=== PATIENT | male | born 1985 | race Caucasian/White ===

== ENCOUNTER 2019-03-13 20:59 | Inpatient (IN) | payer BC ==
[2019-03-13] MEDS ORDERED: ACETAMINOPHEN 500 MG TAB ONE (21:23)
[2019-03-13] MEDS ORDERED: NA CHLORIDE 0.9% 3,000 ML ONE (21:23)
[2019-03-13 22:08] LABS: Absolute Lymphocytes (CBC) 0.7 K/uL (0.7-4.9); Basophils % 0.5 % (0-1.3); Hematocrit 40.5 % (39.6-49.0); MPV 9.3 fL (7.6-11.3); RBC Red Blood Cell Count 4.69 M/uL (4.33-5.43)
[2019-03-13] MEDS ORDERED: CEFTRIAXONE/SWI 1gm 2 GM/20 ML SYR ONE (22:09)
[2019-03-13] MEDS ORDERED: IBUPROFEN 400 MG TAB ONE (22:09)
[2019-03-13] MEDS ORDERED: NA CHLORIDE 0.9% 250 ML ONE (22:09)
[2019-03-13] MEDS ORDERED: OSELTAMIVIR 75 MG CAP ONE (22:09)
[2019-03-13] MEDS ORDERED: AZITHROMYCIN 500 MG INJ IVPB ONE (22:09)
[2019-03-13 22:12] LABS: Protime INR 1.13
[2019-03-13 22:24] LABS: ALT/SGPT 60 U/L (12-78); AST/SGOT 42 U/L (15-37); Albumin 3.5 g/dL (3.4-5.0); Alkaline Phosphatase 87 U/L (45-117); BUN Blood Urea Nitrogen 13 mg/dL (7-18); Bicarbonate 27 mmol/L (21-32); Bilirubin Direct < 0.1 mg/dL (0-0.2); Bilirubin Total 0.5 mg/dL (0.2-1.0); CKMB Creatine Kinase MB < 1.0 ng/mL (0.3-3.6); Creatine Phosphokinase 251 U/L (39-308); Glucose Level 196 mg/dL (74-106); Lipase 52 U/L (73-393); Potassium 3.5 mmol/L (3.5-5.1); Protein, Total 7.4 g/dL (6.4-8.2); Sodium Level 134 mmol/L (136-145); Troponin (Emerg Dept Use Only) < 0.02 ng/mL (0.0-0.045)
--- NOTE | 2019-03-13 23:01 | RAD REPORT ---
EXAM DESCRIPTION: RAD - Chest Single View - 03/13/2019 9:46 pm CLINICAL HISTORY: PRODUCTIVE COUGH Chest pain. COMPARISON: CHEST SINGLE VIEW dated 01/12/2009 FINDINGS: Portable technique limits examination quality. The lungs are grossly clear. The heart is normal in size. No displaced fractures. IMPRESSION: No acute intrathoracic process suspected.
[2019-03-13] MEDS ORDERED: NA CHLORIDE 0.9% 2,000 ML ONE (23:18)
--- NOTE | 2019-03-13 23:48 | ER ---
Nurse's Notes [facility] Name: Danish Velez IV Age: 34 yrs Sex: Male : 1985 Arrival Date: 03/13/2019 Time: 21:04 Bed 16 Private MD: Thaddeus Mao T Diagnosis: Dyspnea;Pneumonia due to other specified bacteria;Fever, unspecified;Sepsis, unspecified organism;Obesity, unspecified;Type 2 diabetes mellitus Presentation: 03/13 21:10 Presenting complaint: Patient states: COUGH STARTED LAST NIGHT. I WORKED ALL DAY rv YESTERDAY AND I WAS DOING FINE UNTIL LAST NIGHT. I COULD NOT BREATH. Transition of care: patient was not received from another setting of care. Onset of symptoms was March 12, 2019 at 19:00. Risk Assessment: Do you want to hurt yourself or someone else? Patient reports no desire to harm self or others. Initial Sepsis Screen: Does the patient meet any 2 criteria? No. Patient's initial sepsis screen is negative. Does the patient have a suspected source of infection? No. Patient's initial sepsis screen is negative. Care prior to arrival: None. 21:10 Method Of Arrival: Ambulatory rv 21:10 Acuity: MONICA 3 rv Triage Assessment: 21:13 General: Appears in no apparent distress. Behavior is calm, cooperative. Pain: Denies rv pain. Neuro: Level of Consciousness is awake, alert, obeys commands, Oriented to person, place, time, situation. Cardiovascular: Patient's skin is warm and dry. Cardiovascular: Rhythm is. 21:41 Respiratory: Onset: The symptoms/episode began/occurred yesterday, the patient has mild wh shortness of breath. Historical: - Allergies: 21:12 NKDA; rv - PMHx: 21:12 Hypertension; High Cholesterol; Diabetes - NIDDM; rv - PSHx: 21:12 Appendectomy; rv - Immunization history:: Adult Immunizations up to date. - Social history:: Smoking status: Patient uses tobacco products, smokes one-half pack cigarettes per day. - Ebola Screening: : No symptoms or risks identified at this time. - Family history:: not pertinent. Screenin:37 Abuse screen: Denies threats or abuse. Denies injuries from another. Nutritional mg2 screening: No deficits noted. Tuberculosis screening: No symptoms or risk factors identified. Fall Risk IV access (20 points). Assessment: 21:40 General: Appears in no apparent distress. Behavior is calm, cooperative, appropriate wh for age. Pain: Denies pain. Neuro: Level of Consciousness is awake, alert, obeys commands, Oriented to person, place, time, situation, Appropriate for age. Cardiovascular: Heart tones S1 S2 Rhythm is sinus tachycardia. Respiratory: Reports shortness of breath cough that is Airway is patent Respiratory effort is even, unlabored, Respiratory pattern is regular, symmetrical, Breath sounds are clear bilaterally. GI: Abdomen is round non-distended. : No signs and/or symptoms were reported regarding the genitourinary system. EENT: Throat is pink. Derm: Skin is intact, is healthy with good turgor, Skin is pink, warm \T\ dry. normal. Musculoskeletal: Circulation, motion, and sensation intact. 23:15 Reassessment: Patient appears in no apparent distress at this time. No changes from previously documented assessment. Patient and/or family updated on plan of care and expected duration. Pain level reassessed. Patient is alert, oriented x 3, equal unlabored respirations, skin warm/dry/pink. 03/14 01:08 Reassessment: Patient appears in no apparent distress at this time. No changes from previously documented assessment. Patient and/or family updated on plan of care and expected duration. Pain level reassessed. Patient is alert, oriented x 3, equal unlabored respirations, skin warm/dry/pink. verified with Justine order for Ct Chest Angio. 01:54 Reassessment: Patient appears in no apparent distress at this time. No changes from previously documented assessment. Patient and/or family updated on plan of care and expected duration. Pain level reassessed. Patient is alert, oriented x 3, equal unlabored respirations, skin warm/dry/pink. 02:01 Reassessment: CTA done Pt back from imaging. 03:30 Reassessment: Patient appears in no apparent distress at this time. No changes from previously documented assessment. Patient and/or family updated on plan of care and expected duration. Pain level reassessed. Patient is alert, oriented x 3, equal unlabored respirations, skin warm/dry/pink. Vital Signs: 03/13 21:12 BP 174 / 69; Pulse 121; Resp 21; Temp 103; Pulse Ox 96% on R/A; Weight 165.56 kg; rv Height 6 ft. 3 in. (190.50 cm); 22:57 BP 131 / 84; Pulse 118; Resp 22; Temp 101.0(O); Pulse Ox 96% on R/A; fc 23:25 BP 127 / 68; Pulse 110; Resp 18; Pulse Ox 96% on R/A; mg2 03/14 00:45 BP 135 / 49; Pulse 106; Resp 18; Temp 99.2; Pulse Ox 95% ; wh 02:01 BP 135 / 81; Pulse 95; Resp 18; Pulse Ox 95% ; wh 03:30 BP 122 / 97; Pulse 94; Resp 18; Pulse Ox 97% on R/A; wh 03/13 21:12 Body Mass Index 45.62 (165.56 kg, 190.50 cm) rv ED Course: 03/13 19:30 Inserted saline lock: 20 gauge in right antecubital area, using aseptic technique. Blood collected. 21:04 Patient arrived in ED. am2 21:04 Thaddeus Mao MD is Private Physician. am2 21:11 Triage completed. rv 21:13 Cassie Mayo is Primary Nurse. wh 21:15 Arm band placed on Patient placed in the treatment room, on a stretcher, Patient rv notified of wait time. 21:26 Jerry Benson MD is Attending Physician. jewell 21:41 Patient has correct armband on for positive identification. Bed in low position. Call light in reach. Side rails up X 1. teletypesetter monitor on. Pulse ox on. NIBP on. 21:47 Chest Single View XRAY In Process Unspecified. EDMS 23:41 Thaddeus Mao MD is Hospitalizing Provider. jewell 23:41 Hospitalizing Provider role handed off by Thaddeus Mao MD jewell 23:41 Luis E Burns MD is Hospitalizing Provider. jewell 03/14 03:40 No provider procedures requiring assistance completed. Patient admitted, IV remains in place. Administered Medications: 03/13 21:36 Drug: NS 0.9% (30 ml/kg) 30 ml/kg Route: IV; Rate: bolus; Site: right antecubital; mg2 03/14 01:00 Follow up: Response: No adverse reaction; IV Status: Completed infusion; IV Intake: wh 5000ml 03/13 21:37 Drug: Tylenol 1000 mg Route: PO; mg2 03/14 00:58 Follow up: Response: No adverse reaction; Temperature is decreased 03/13 22:05 Drug: Rocephin 2 grams Route: IV; Rate: per protocol; Site: right antecubital; 03/14 00:58 Follow up: Response: No adverse reaction; IV Status: Completed infusion 03/13 22:10 Drug: Zithromax 500 mg Route: IVPB; Infused Over: 1 hrs; Site: right antecubital; 03/14 00:59 Follow up: Response: No adverse reaction; IV Status: Completed infusion 03/13 22:16 Drug: Tamiflu 75 mg Route: PO; 03/14 00:59 Follow up: Response: No adverse reaction 03/13 22:56 Drug: Motrin 800 mg Route: PO; 03/14 01:00 Follow up: Response: No adverse reaction Intake: 01:00 IV: 5000ml; Total: 5000ml. Outcome: 03/13 23:43 Decision to Hospitalize by Provider. [facility] 03/14 03:40 Admitted to Med/surg accompanied by tech, family with patient, via wheelchair, room 220, with chart, Report called to Ludwin Mackey RN Condition: stable Instructed on the need for admit. 03:45 Patient left the ED. Signatures: Dispatcher [employer] EDJerry Lambert MD MD cha Chretien, Felicia RN RN Taisha Judd Winsy Kojo Mcallister RN RN [facility] Vick Mitchell RN RN rv Corrections: (The following items were deleted from the chart) 01:55 01:08 Reassessment: Patient appears in no apparent distress at this time. No changes from previously documented assessment. Patient and/or family updated on plan of care and expected duration. Pain level reassessed. Patient is alert, oriented x 3, equal unlabored respirations, skin warm/dry/pink.
--- NOTE | 2019-03-13 23:49 | EDPHYS ---
Physician Documentation [facility] Name: Danish Velez IV Age: 34 yrs Sex: Male : 1985 Arrival Date: 03/13/2019 Time: 21:04 Bed 16 Private MD: Thaddeus Mao T ED Physician Jerry Benson HPI: 03/13 21:47 This 34 yrs old Male presents to ER via Ambulatory with complaints of jewell Shortness Of Breath, Cough. 21:47 The patient has shortness of breath at rest, with light activity. Onset: The jewell symptoms/episode began/occurred 2 day(s) ago. Duration: The symptoms are chronic. The patient's shortness of breath has no apparent modifying factors. Associated signs and symptoms: The patient has no apparent associated signs or symptoms. Severity of symptoms: At their worst the symptoms were mild moderate. The patient has not experienced similar symptoms in the past. Historical: - Allergies: 21:12 NKDA; rv - PMHx: 21:12 Hypertension; High Cholesterol; Diabetes - NIDDM; rv - PSHx: 21:12 Appendectomy; rv - Immunization history:: Adult Immunizations up to date. - Social history:: Smoking status: Patient uses tobacco products, smokes one-half pack cigarettes per day. - Ebola Screening: : No symptoms or risks identified at this time. - Family history:: not pertinent. ROS: 21:47 Eyes: Negative for injury, pain, redness, and discharge, ENT: Negative for injury, jewell pain, and discharge, Neck: Negative for injury, pain, and swelling, Cardiovascular: Negative for chest pain, palpitations, and edema, Abdomen/GI: Negative for abdominal pain, nausea, vomiting, diarrhea, and constipation, Back: Negative for injury and pain, : Negative for injury, bleeding, discharge, and swelling, MS/Extremity: Negative for injury and deformity, Skin: Negative for injury, rash, and discoloration, Neuro: Negative for headache, weakness, numbness, tingling, and seizure, Psych: Negative for depression, anxiety, suicide ideation, homicidal ideation, and hallucinations, Allergy/Immunology: Negative for hives, rash, and allergies, Endocrine: Negative for neck swelling, polydipsia, polyuria, polyphagia, and marked weight changes, Hematologic/Lymphatic: Negative for swollen nodes, abnormal bleeding, and unusual bruising. 21:47 Constitutional: Positive for body aches, chills, fever, malaise. 21:47 Cardiovascular: Positive for chest pain, palpitations. 21:47 Respiratory: Positive for cough, shortness of breath, at rest. Exam: 21:47 Head/Face: Normocephalic, atraumatic. Eyes: Pupils equal round and reactive to light, jewell extra-ocular motions intact. Lids and lashes normal. Conjunctiva and sclera are non-icteric and not injected. Cornea within normal limits. Periorbital areas with no swelling, redness, or edema. ENT: Nares patent. No nasal discharge, no septal abnormalities noted. Tympanic membranes are normal and external auditory canals are clear. Oropharynx with no redness, swelling, or masses, exudates, or evidence of obstruction, uvula midline. Mucous membranes moist. Neck: Trachea midline, no thyromegaly or masses palpated, and no cervical lymphadenopathy. Supple, full range of motion without nuchal rigidity, or vertebral point tenderness. No Meningismus. Chest/axilla: Normal chest wall appearance and motion. Nontender with no deformity. No lesions are appreciated. Abdomen/GI: Soft, non-tender, with normal bowel sounds. No distension or tympany. No guarding or rebound. No evidence of tenderness throughout. Back: No spinal tenderness. No costovertebral tenderness. Full range of motion. Male : Normal genitalia with no discharge or lesions. Skin: Warm, dry with normal turgor. Normal color with no rashes, no lesions, and no evidence of cellulitis. MS/ Extremity: Pulses equal, no cyanosis. Neurovascular intact. Full, normal range of motion. Neuro: Awake and alert, GCS 15, oriented to person, place, time, and situation. Cranial nerves II-XII grossly intact. Motor strength 5/5 in all extremities. Sensory grossly intact. Cerebellar exam normal. Normal gait. Psych: Awake, alert, with orientation to person, place and time. Behavior, mood, and affect are within normal limits. 21:47 Constitutional: The patient appears febrile. 21:47 Cardiovascular: Rate: tachycardic, Rhythm: regular, Pulses: Pulses are 4+ in bilateral radial, brachial, femoral, popliteal, posterior tibial and and dorsalis pedis arteries.. Heart sounds: normal, Edema: is not appreciated. 23:41 Musculoskeletal/extremity: DVT Exam: No signs of deep vein thrombosis. no pain, no jewell swelling, no tenderness, negative Homans' sign noted on exam, no appreciated bluish discoloration, no erythema, no increased warmth. Vital Signs: 21:12 BP 174 / 69; Pulse 121; Resp 21; Temp 103; Pulse Ox 96% on R/A; Weight 165.56 kg; rv Height 6 ft. 3 in. (190.50 cm); 22:57 BP 131 / 84; Pulse 118; Resp 22; Temp 101.0(O); Pulse Ox 96% on R/A; fc 23:25 BP 127 / 68; Pulse 110; Resp 18; Pulse Ox 96% on R/A; mg2 03/14 00:45 BP 135 / 49; Pulse 106; Resp 18; Temp 99.2; Pulse Ox 95% ; wh 02:01 BP 135 / 81; Pulse 95; Resp 18; Pulse Ox 95% ; wh 03:30 BP 122 / 97; Pulse 94; Resp 18; Pulse Ox 97% on R/A; wh 03/13 21:12 Body Mass Index 45.62 (165.56 kg, 190.50 cm) rv MDM: 03/13 21:26 Patient medically screened. [facility] 21:49 Data reviewed: vital signs, nurses notes, lab test result(s), EKG, radiologic studies. [facility] 03/13 21:15 Order name: Strep; Complete Time: 23:40 wh 03/13 21:15 Order name: Flu; Complete Time: 23:40 03/13 21:22 Order name: Basic Metabolic Panel; Complete Time: 23:40 [facility] 03/13 21:22 Order name: Blood Culture Adult (2) [facility] 03/13 21:22 Order name: CBC with Diff; Complete Time: 23:40 mg2 03/13 21:22 Order name: Ckmb; Complete Time: 23:40 mg2 03/13 21:22 Order name: CPK; Complete Time: 23:40 mg2 03/13 21:22 Order name: Lactate; Complete Time: 23:40 mg2 03/13 21:22 Order name: LFT's; Complete Time: 23:40 mg2 03/13 21:22 Order name: Lipase; Complete Time: 23:40 mg2 03/13 21:22 Order name: Procalcitonin; Complete Time: 23:40 mg2 03/13 21:22 Order name: Protime (+inr); Complete Time: 23:40 mg2 03/13 21:22 Order name: Ptt, Activated; Complete Time: 23:40 mg2 03/13 21:22 Order name: Troponin (emerg Dept Use Only); Complete Time: 23:40 mg2 03/13 21:22 Order name: Urine Microscopic Only; Complete Time: 02:53 mg2 03/13 21:46 Order name: Glucose, Ancillary Testing; Complete Time: 23:40 EDMS 03/13 22:10 Order name: Throat Culture EDMS 03/14 00:28 Order name: Lactate EDMS 03/14 00:29 Order name: Urinalysis EDMS 03/14 00:29 Order name: CBC with Automated Diff EDMS 03/14 00:29 Order name: CBC with Automated Diff EDMS 03/14 00:29 Order name: Comprehensive Metabolic Panel EDMS 03/14 00:29 Order name: Comprehensive Metabolic Panel EDMS 03/14 00:29 Order name: Magnesium EDMS 03/14 00:29 Order name: Magnesium EDMS 03/14 00:29 Order name: Phosphorus EDMS 03/14 00:29 Order name: Phosphorus EDMS 03/14 01:28 Order name: Urine Dipstick--Ancillary (enter results) sr5 03/14 01:53 Order name: Urine Dipstick-Ancillary; Complete Time: 02:53 EDMS 03/14 02:05 Order name: Lactate Sepsis 2 HR Follow-up; Complete Time: 02:53 EDMS 03/13 21:22 Order name: Chest Single View XRAY; Complete Time: 23:40 mg2 03/13 21:22 Order name: Accucheck; Complete Time: 21:36 mg2 03/13 21:22 Order name: Cardiac monitoring; Complete Time: 21:36 mg2 03/13 21:22 Order name: EKG - Nurse/Tech; Complete Time: 21:36 mg2 03/13 21:22 Order name: IV Saline Lock - Large Bore; Complete Time: 21:36 mg2 03/13 21:22 Order name: Labs collected and sent; Complete Time: 21:36 mg2 03/13 21:22 Order name: O2 Per Protocol; Complete Time: 21:36 mg2 03/13 21:22 Order name: O2 Sat Monitoring; Complete Time: 21:36 mg2 03/13 21:22 Order name: Urine Dipstick-Ancillary (obtain specimen); Complete Time: 01:28 [facility] 03/13 23:40 Order name: CT Chest For PE Angio [facility] 03/14 00:28 Order name: Consistent Carb (ADA) 1800 Oswaldo EDHI Administered Medications: 21:36 Drug: NS 0.9% (30 ml/kg) 30 ml/kg Route: IV; Rate: bolus; Site: right antecubital; [facility] 03/[place] 01:00 Follow up: Response: No adverse reaction; IV Status: Completed infusion; IV Intake: 5000ml 03/13 21:37 Drug: Tylenol 1000 mg Route: PO; [facility] 03/14 00:58 Follow up: Response: No adverse reaction; Temperature is decreased 03/13 22:05 Drug: Rocephin 2 grams Route: IV; Rate: per protocol; Site: right antecubital; 03/14 00:58 Follow up: Response: No adverse reaction; IV Status: Completed infusion 03/13 22:10 Drug: Zithromax 500 mg Route: IVPB; Infused Over: 1 hrs; Site: right antecubital; 03/14 00:59 Follow up: Response: No adverse reaction; IV Status: Completed infusion 03/13 22:16 Drug: Tamiflu 75 mg Route: PO; 03/14 00:59 Follow up: Response: No adverse reaction 03/13 22:56 Drug: Motrin 800 mg Route: PO; 03/14 01:00 Follow up: Response: No adverse reaction Disposition: 03/13/19 23:43 Hospitalization ordered by Luis E Burns for Inpatient Admission. Preliminary diagnosis are Dyspnea, Pneumonia due to other specified bacteria, Fever, unspecified, Sepsis, unspecified organism, Obesity, unspecified, Type 2 diabetes mellitus. - Bed requested for Telemetry/MedSurg (Inpatient). - Status is Inpatient Admission. - Condition is Fair. - Problem is new. - Symptoms have improved. UTI on Admission? No Signatures: Dispatcher [employer] EDMS Jerry Benson MD MD cha Chretien, Felicia, RN RN [facility] Kojo Mcallister RN RN [facility] Vick Mitchell RN RN rv Corrections: (The following items were deleted from the chart) 03/13 21:50 21:47 Chest Pa And Lat (2 Views)+[email or web address] ordered. EDMS EDMS 03/14 00:24 03/13 23:43 Hospitalization Ordered by Luis E Burns MD for Inpatient Admission. rv Preliminary diagnosis is Dyspnea; Pneumonia due to other specified bacteria; Fever, unspecified; Sepsis, unspecified organism; Obesity, unspecified; Type 2 diabetes mellitus. Bed requested for Telemetry/MedSurg (Inpatient). Status is Inpatient Admission. Condition is Fair. Problem is new. Symptoms have improved. UTI on Admission? No. jewell 03/14 03:45 00:24 03/13/2019 23:43 Hospitalization Ordered by Luis E Burns MD for Inpatient wh Admission. Preliminary diagnosis is Dyspnea; Pneumonia due to other specified bacteria; Fever, unspecified; Sepsis, unspecified organism; Obesity, unspecified; Type 2 diabetes mellitus. Bed requested for Telemetry/MedSurg (Inpatient). Status is Inpatient Admission. Condition is Fair. Problem is new. Symptoms have improved. UTI on Admission? No. rv
[2019-03-14] MEDS ORDERED: ONDANSETRON 4 MG/2 ML VIAL IV PRN (00:07)
--- NOTE | 2019-03-14 00:12 | P.HP ---
Certification for Inpatient Patient admitted to: Inpatient With expected LOS: >2 Midnights Patient will require the following post-hospital care: None Practitioner: I am a practitioner with admitting privileges, knowledge of patient current condition, hospital course, and medical plan of care. Services: Services provided to patient in accordance with Admission requirements found in Title 42 Section 412.3 of the Code of Federal Regulations Patient History Date of Service: 03/14/19 Reason for admission: Fever History of Present Illness: 34-year-old male with past medical history of hypertension, hyperlipidemia, diabetes, morbid obesity came to ER with fever which started yesterday and has progressively worsening and was brought to ER. Has a sick contact , his wifewho also gave the ER with diarrhea and nausea and vomiting. The patient denies any nausea vomiting or diarrhea. Has generalized body pain. No cough. He also complains of fall shortness of breath with no history of wheezing or asthma in the past. Denies any chest pain . Patient was assessed in the ER and found to have a temperature of 103 and is being admitted subsequently Allergies No Known Drug Allergies Allergy (Verified 03/14/19 03:52) Unknown Home Medications: Atorvastatin Calcium [Lipitor*] 20 mg PO BEDTIME 03/14/19 Carvedilol [Coreg] 25 mg PO BID 03/14/19 Metformin HCl [Metformin HCl ER] 750 mg PO BID 03/14/19 Valsartan [Diovan*] 160 mg PO DAILY 03/14/19 hydroCHLOROthiazide [Hydrochlorothiazide] 25 mg PO DAILY 03/14/19 - Past Medical/Surgical History Past Medical History: Reviewed- Non-Contributory -: Hypertension -: Hyperlipidemia -: Diabetes -: Obesity Past Surgical History: Reviewed- Non-Contributory -: Appendectomy - Family History Family History: Reviewed- Non-Contributory - Family History Father -: Hypertension - Social History Smoking Status: Current every day smoker Counseled patient to stop smoking for: more than 10 minutes Review of Systems 10-point ROS is otherwise unremarkable General: Fever, Chills, Malaise Respiratory: Cough, Shortness of Breath, SOB with Excertion Physical Examination - Vital Signs Temperature: 103 F Blood Pressure: 172/92 Pulse: 120 - Physical Exam General: Alert, Oriented x3, Mild distress, Obese HEENT: Atraumatic, Normocephalic Neck: Supple, 2+ carotid pulse no bruit Respiratory: Diminished, Crackles/rales Cardiovascular: Normal pulses, Regular rate/rhythm Capillary refill: <2 Seconds Gastrointestinal: Soft and benign, W/out hepatosplenomegaly Musculoskeletal: No clubbing, No swelling Integumentary: No rashes, No breakdown Neurological: Normal speech, Normal strength at 5/5 x4 extr Lymphatics: No axilla or inguinal lymphadenopathy Urinary: Other (No bladder distention) External genitalia: Deferred Rectal: Deferred - Studies Laboratory Data (last 24 hrs) 03/13/19 21:28: PT 13.3 H, INR 1.13, APTT 28.7 03/13/19 21:28: WBC 8.6, Hgb 13.6, Hct 40.5, Plt Count 234 03/13/19 21:28: Sodium 134 L, Potassium 3.5, BUN 13, Creatinine 1.44 H, Glucose 196 H, Total Bilirubin 0.5, AST 42 H, ALT 60, Alkaline Phosphatase 87, Lipase 52 L Microbiology Data (last 24 hrs): 03/13/19 21:25 Throat Group A Streptococcus Rapid Screen - Final 03/13/19 21:25 Nasopharnyx Influenza Type A Antigen Screen - Final 03/13/19 21:25 Nasopharnyx Influenza Type B Antigen Screen - Final Assessment and Plan - Problems (Diagnosis) (1) Sepsis Current Visit: Yes Status: Acute (2) Pneumonitis Current Visit: Yes Status: Acute (3) Diabetes Current Visit: Yes Status: Chronic (4) Hypertension Current Visit: Yes Status: Chronic (5) Hyperlipidemia Current Visit: Yes Status: Acute (6) Obesity Current Visit: Yes Status: Chronic - Plan Sepsis Possible pneumonia versus acute viral Syndrome Diabetes Hypertension Hyperlipidemia Acute kidney injury Obesity Smoking Plan Monitor under telemetry Aggressive hydration Pain control IV antibiotics Cultures Change antibiotic as per sensitivity Continue home medications and titrate as needed Antihypertensives titrated Advised lifestyle modification Monitor renal parameters Advised smoking cessation GI/DVT prophylaxis - Advance Directives Does patient have a Living Will: No Does patient have a Durable POA for Healthcare: No Time Spent Managing Pts Care (In Minutes): 46
[2019-03-14] MEDS ORDERED: D50W 25 GM/50 ML SYRINGE/VIAL IV PRN (01:06)
[2019-03-14] MEDS ORDERED: GLUCAGON 1 MG/VIAL IM PRN (01:06)
[2019-03-14 01:53] LABS: Urine Blood NEGATIVE (NEG); Urine Glucose TRACE (NEG); Urine Protein NEGATIVE (NEG); Urine Specific Gravity 1.025 (1.005-1.030)
[2019-03-14 02:11] LABS: Urine Bacteria <20 /HPF (NONE SEEN); Urine Culture Reflex Order NOT NEEDED; Urine RBC NONE SEEN /HPF (NONE SEEN)
[2019-03-14] MEDS ORDERED: IPRATROPIUM BROM 0.5MG/2.5ML ONE ×3 (02:12→07:41)
[2019-03-14 04:11] VITALS: BMI 46.5
[2019-03-14] MEDS ORDERED: NA CHLORIDE 0.9% 1,000 ML ONE (04:43)
[2019-03-14] MEDS: NA CHLORIDE 0.9% 1,000 ML IV SCH ×4 (04:47→21:00)
[2019-03-14] MEDS: IPRATROPIUM BROM 0.5MG/2.5ML NEB SCH ×4 (05:00→19:55)
[2019-03-14] MEDS: INSULIN -REGULAR HUMAN 50 UNIT/0.5 ML ML SQ SCH ×4 (07:30→20:53)
[2019-03-14] MEDS ORDERED: INSULIN -REGULAR HUMAN 50 UNIT/0.5 ML ML SQ SCH (07:30)
[2019-03-14] MEDS ORDERED: ACETAMINOPHEN 500 MG TAB ONE (08:24)
[2019-03-14] MEDS: ENOXAPARIN 40 MG/0.4 ML SQ SCH (08:27)
[2019-03-14] MEDS: ACETAMINOPHEN 500 MG TAB PO PRN ×3 (08:28→17:17)
[2019-03-14] MEDS ORDERED: CEFTRIAXONE/SWI 1gm 1 GM/10 ML SYR ONE (08:40)
[2019-03-14] MEDS: CEFTRIAXONE/SWI 1gm 1 GM/10 ML SYR IVP SCH (10:00)
[2019-03-14] MEDS: AZITHROMYCIN IV 500 MG in NA CHLORIDE 0.9% 250 ML IVPB SCH (10:20)
--- NOTE | 2019-03-14 10:31 | RAD REPORT ---
EXAM DESCRIPTION: CT chest angiography with intravenous contrast CLINICAL HISTORY: 34-year-old male with chest pain, cough and dyspnea. TECHNIQUE: Following the administration of intravenous contrast, multiple high-resolution axial imag es of the chest were performed followed by sagittal and coronal reconstructed images. No MIP images w ere performed. The CT study is performed according to ALARA (as low as reasonably achievable) or ALAR A/IMAGE GENTLY, with automatic adjustment of mA and/or kV according to patient size. Performed on: 03/14/2019 at 2:00 AM COMPARISON: None FINDINGS: There is suboptimal contrast opacification of the pulmonary arteries. Additionally, ther e is quantum mottle artifact which results in degradation of image quality particularly involving the segmental and subsegmental pulmonary artery branches. No obvious intra-arterial filling defects are identified on this examination to suggest acute or chronic pulmonary embolism. The thoracic aorta is normal in caliber and contour without evidence of aneurysm or dissection. The lungs are well expanded and are clear. There is minimal lingular atelectasis. There is no evidenc e of a pneumothorax. There are no pleural effusions. The heart is mildly enlarged. There is no pericardial effusion. There is no evidence of hilar, mediastinal or axillary lymphadenopathy. No acute osseous abnormality is identified. The visualized upper abdominal structures are unremarkable. IMPRESSION: 1. Suboptimal contrast opacification of the pulmonary arteries on this examination. Humble tionally, there is quantum mottle artifact which results in degradation of image quality particularly involving the segmental and subsegmental pulmonary artery branches. No obvious intra-arterial fillin g defect is identified. 2. No evidence of acute intrathoracic disease. There is minimal lingular atelectasis. 3. Mild cardiomegaly. Electronically signed by: Ansley Brody DO 03/14/2019 3:27 AM INVESTIGATOR UTILITY BILL COMPLAINTS Due to temporary technical issues with the PACS/Fluency reporting system, reports are being signed by the in house radiologist as a courtesy to ensure prompt reporting. The interpreting radiologist is f surjitly responsible for the content of the report.
--- NOTE | 2019-03-14 11:09 | P.PN ---
Subjective Date of Service: 03/14/19 Chief Complaint: Fever Patient continued to have fever. He is also tachycardic. He has nonproductive cough. He denies food diarrhea. Physical Examination - Vital Signs Temperature: 100.3 F Blood Pressure: 142/67 Pulse: 97 Respirations: 20 Pulse Ox (%): 94 - Physical Exam General: Alert, In no apparent distress, Obese HEENT: Mucous membr. moist/pink Neck: Supple Respiratory: Clear to auscultation bilaterally, Normal air movement Cardiovascular: No edema, Regular rate/rhythm, Normal S1 S2 Gastrointestinal: Soft and benign, No tenderness Musculoskeletal: No swelling Neurological: Normal speech, Normal strength at 5/5 x4 extr - Studies Laboratory Data (last 24 hrs) 03/13/19 21:28: PT 13.3 H, INR 1.13, APTT 28.7 03/13/19 21:28: WBC 8.6, Hgb 13.6, Hct 40.5, Plt Count 234 03/13/19 21:28: Sodium 134 L, Potassium 3.5, BUN 13, Creatinine 1.44 H, Glucose 196 H, Total Bilirubin 0.5, AST 42 H, ALT 60, Alkaline Phosphatase 87, Lipase 52 L Microbiology Data (last 24 hrs): 03/13/19 21:25 Throat Group A Streptococcus Rapid Screen - Final 03/13/19 21:25 Nasopharnyx Influenza Type A Antigen Screen - Final 03/13/19 21:25 Nasopharnyx Influenza Type B Antigen Screen - Final Assessment And Plan - Current Problems (Diagnosis) (1) Acute bronchitis Current Visit: Yes Status: Acute (2) Acute viral syndrome Current Visit: Yes Status: Acute (3) Sepsis Current Visit: Yes Status: Acute (4) Diabetes Current Visit: Yes Status: Chronic (5) Hypertension Current Visit: Yes Status: Chronic (6) Obesity Current Visit: Yes Status: Chronic - Plan Lactic acidosis has resolved. Continue supportive measures with IV hydration, antipyretics. Continue empiric antibiotics Bronchodilators Blood glucose management with insulin sliding scale. Hold metformin. Noted procalcitonin is low indicating system bacterial infection less likely. Follow cultures.
[2019-03-14] MEDS ORDERED: IBUPROFEN 200 MG TAB PO ONE (13:00)
[2019-03-15] MEDS: ACETAMINOPHEN 500 MG TAB PO PRN (00:30)
[2019-03-15] MEDS: IPRATROPIUM BROM 0.5MG/2.5ML NEB SCH ×4 (02:03→19:30)
[2019-03-15] MEDS: NA CHLORIDE 0.9% 1,000 ML IV SCH ×3 (04:29→20:37)
[2019-03-15 05:28] LABS: Absolute Lymphocytes (CBC) 1.7 K/uL (0.7-4.9); Basophils % 1.5 % (0-1.3); Hematocrit 33.4 % (39.6-49.0); Lymphocytes % 34.4 % (15.3-44.8); MPV 8.5 fL (7.6-11.3); RBC Red Blood Cell Count 3.92 M/uL (4.33-5.43)
[2019-03-15 05:45] LABS: ALT/SGPT 56 U/L (12-78); AST/SGOT 50 U/L (15-37); Albumin 2.8 g/dL (3.4-5.0); Alkaline Phosphatase 67 U/L (45-117); BUN Blood Urea Nitrogen 9 mg/dL (7-18); Bicarbonate 27 mmol/L (21-32); Bilirubin Total 0.2 mg/dL (0.2-1.0); Glucose Level 106 mg/dL (74-106); Phosphorus 3.5 mg/dL (2.5-4.9); Potassium 3.6 mmol/L (3.5-5.1); Protein, Total 5.7 g/dL (6.4-8.2); Sodium Level 140 mmol/L (136-145)
[2019-03-15] MEDS: INSULIN -REGULAR HUMAN 50 UNIT/0.5 ML ML SQ SCH ×4 (07:30→20:42)
[2019-03-15] MEDS: ALBUTEROL 2.5 MG/3 ML NEB SOL NEB PRN ×2 (07:46→14:36)
--- NOTE | 2019-03-15 08:12 | EKG ---
Test Date: 2019-03-13 Test Time: 21:27:11 Hand Violin Maker: SCOTT MEASUREMENT RESULTS: Intervals: Rate: 118 IN: 142 QRSD: 92 QT: 314 QTc: 440 [place]: P: 26 IN: 142 QRS: -32 T: 28 INTERPRETIVE STATEMENTS: Sinus tachycardia Left axis deviation Abnormal ECG Compared to ECG 03/19/2014 07:18:16 Left-axis deviation now present Left anterior fascicular block no longer present Electronically Signed On 03-15-19 08:10:19 CLINICAL DOCUMENTATION MANAGER by Conrad Gerard
[2019-03-15] MEDS: CEFTRIAXONE/SWI 1gm 1 GM/10 ML SYR IVP SCH (08:23)
[2019-03-15] MEDS: ENOXAPARIN 40 MG/0.4 ML SQ SCH (09:00)
[2019-03-15] MEDS ORDERED: POTASSIUM CL SA 10 MEQ TAB PO ONE (09:00)
[2019-03-15] MEDS: FLUTICASONE 50MCG NASAL SPRAY NAS SCH ×2 (09:43→20:36)
[2019-03-15] MEDS: AZITHROMYCIN IV 500 MG in NA CHLORIDE 0.9% 250 ML IVPB SCH (09:43)
--- NOTE | 2019-03-15 12:03 | P.PN ---
Subjective Date of Service: 03/15/19 Chief Complaint: Fever Subjective: No new changes, No C/O voiced, Tolerating diet (still nasal congestion , still malaise -s/p fever last pm) Review of Systems 10-point ROS is otherwise unremarkable Physical Examination - Vital Signs Temperature: 97.9 F Blood Pressure: 128/71 Pulse: 79 Respirations: 20 Pulse Ox (%): 96 - Physical Exam General: In no apparent distress, Oriented x3, Obese HEENT: Atraumatic, Normocephalic Neck: Supple, 2+ carotid pulse no bruit Respiratory: Clear to auscultation bilaterally, Stridor (with upper ariway wheeze ) Cardiovascular: No edema, Normal pulses, Regular rate/rhythm, Normal S1 S2 Gastrointestinal: Normal bowel sounds, Soft and benign, Non-distended, No guarding Musculoskeletal: No clubbing, No swelling Integumentary: No rashes, No breakdown Neurological: Normal gait, Normal speech - Studies Laboratory Last Values WBC 5.1 K/uL (4.3-10.9) D 03/15/19 05:11 RBC 3.92 M/uL (4.33-5.43) L 03/15/19 05:11 Hgb 11.5 g/dL (13.6-17.9) L 03/15/19 05:11 Hct 33.4 % (39.6-49.0) L D 03/15/19 05:11 MCV 85.3 fL (80-100) 03/15/19 05:11 MCH 29.3 pg (27.0-35.0) 03/15/19 05:11 MCHC 34.4 g/dL (32.0-36.0) 03/15/19 05:11 RDW 13.5 % (12.1-15.2) 03/15/19 05:11 Plt Count 169 K/uL (152-406) D 03/15/19 05:11 MPV 8.5 fL (7.6-11.3) 03/15/19 05:11 Neutrophils % 49.1 % (41.7-73.7) 03/15/19 05:11 Lymphocytes % 34.4 % (15.3-44.8) 03/15/19 05:11 Monocytes % 14.3 % (3.3-12.3) H 03/15/19 05:11 Eosinophils % 0.7 % (0-4.4) 03/15/19 05:11 Basophils % 1.5 % (0-1.3) H 03/15/19 05:11 Absolute Neutrophils 2.5 K/uL (1.8-8.0) 03/15/19 05:11 Absolute Lymphocytes 1.7 K/uL (0.7-4.9) 03/15/19 05:11 Absolute Monocytes 0.7 K/uL (0.1-1.3) 03/15/19 05:11 Absolute Eosinophils 0.0 K/uL (0-0.5) 03/15/19 05:11 Absolute Basophils 0.1 K/uL (0-0.5) 03/15/19 05:11 PT 13.3 SECONDS (9.5-12.5) H 03/13/19 21:28 INR 1.13 03/13/19 21:28 APTT 28.7 SECONDS (24.3-36.9) 03/13/19 21:28 Sodium 140 mmol/L (136-145) 03/15/19 05:11 Potassium 3.6 mmol/L (3.5-5.1) 03/15/19 05:11 Chloride 108 mmol/L (98-107) H 03/15/19 05:11 Carbon Dioxide 27 mmol/L (21-32) 03/15/19 05:11 BUN 9 mg/dL (7-18) 03/15/19 05:11 Creatinine 0.94 mg/dL (0.55-1.3) 03/15/19 05:11 Estimated GFR > 90 mL/min (=/>90) 03/15/19 05:11 Glucose 106 mg/dL (74-106) 03/15/19 05:11 POC Glucose 147 mg/dl (65-120) H 03/15/19 11:22 Lactic Acid 1.6 mmol/L (0.4-2.0) 03/14/19 10:30 Calcium 7.3 mg/dL (8.5-10.1) L D 03/15/19 05:11 Phosphorus 3.5 mg/dL (2.5-4.9) 03/15/19 05:11 Magnesium 2.0 mg/dL (1.8-2.4) 03/15/19 05:11 Total Bilirubin 0.2 mg/dL (0.2-1.0) 03/15/19 05:11 Direct Bilirubin < 0.1 mg/dL (0-0.2) 03/13/19 21:28 AST 50 U/L (15-37) H 03/15/19 05:11 ALT 56 U/L (12-78) 03/15/19 05:11 Alkaline Phosphatase 67 U/L (45-117) 03/15/19 05:11 Creatine Kinase 251 U/L (39-308) 03/13/19 21:28 CK-MB (CK-2) < 1.0 ng/mL (0.3-3.6) 03/13/19 21:28 Rapid Troponin I < 0.02 ng/mL (0.0-0.045) 03/13/19 21:28 Serum Total Protein 5.7 g/dL (6.4-8.2) L 03/15/19 05:11 Albumin 2.8 g/dL (3.4-5.0) L 03/15/19 05:11 Globulin 2.9 g/dL (2.3-3.5) 03/15/19 05:11 Albumin/Globulin Ratio 1.0 (1.1-1.8) L 03/15/19 05:11 Lipase 52 U/L (73-393) L 03/13/19 21:28 Procalcitonin < 0.05 ng/mL (<0.50) 03/13/19 21:28 Urine pH 5.0 (5.0-7.0) 03/14/19 01:28 Ur Specific [place] 1.025 (1.005-1.030) 03/14/19 01:28 Urine Ketones Trace (NEG) 03/14/19 01:28 Urine Blood Negative (NEG) 03/14/19 01:28 Urine Nitrite Negative (NEG) 03/14/19 01:28 Ur Leukocyte Esterase Negative (NEG) 03/14/19 01:28 Urine RBC None seen /HPF (NONE SEEN) 03/14/19 01:15 Urine WBC None seen /HPF (<5) 03/14/19 01:15 Ur Squamous Epith Cells <5 /HPF (NONE SEEN) 03/14/19 01:15 Urine Bacteria <20 /HPF (NONE SEEN) 03/14/19 01:15 Urine Culture Reflexed Not needed 03/14/19 01:15 Urine Glucose Trace (NEG) 03/14/19 01:28 Urine Total Protein Negative (NEG) 03/14/19 01:28 Medications List Reviewed: Yes Assessment & Plan - Problems (Diagnosis) (1) Acute bronchitis Current Visit: Yes Status: Acute (2) Acute viral syndrome Current Visit: Yes Status: Acute (3) Sepsis Current Visit: Yes Status: Acute (4) Diabetes Current Visit: Yes Status: Chronic (5) Hypertension Current Visit: Yes Status: Chronic (6) Obesity Current Visit: Yes Status: Chronic Physician Review: Patient Assessed, Agree with Above Assessment and Plan Physician Review Additional Text: # Acute viral bronchitis -neg flu swab as well as strep screen - still possible due to orther viral syndrome -unable to do resp viral pattern - c/w prn antipyretics -c/w nebs prn -will add flonase - will keep until fever absence for more than 24 hrs # DM -c/w regime # HTN -controlled # DVT prop- on sc hep Critical Care: Yes
[2019-03-16] MEDS: IPRATROPIUM BROM 0.5MG/2.5ML NEB SCH ×2 (01:10→08:29)
[2019-03-16 06:40] LABS: Absolute Lymphocytes (CBC) 2.2 K/uL (0.7-4.9); Basophils % 0.4 % (0-1.3); Hematocrit 37.4 % (39.6-49.0); Lymphocytes % 32.6 % (15.3-44.8); MPV 8.7 fL (7.6-11.3)
[2019-03-16 06:51] LABS: BUN Blood Urea Nitrogen 6 mg/dL (7-18); Bicarbonate 28 mmol/L (21-32); Glucose Level 102 mg/dL (74-106); Potassium 3.4 mmol/L (3.5-5.1); Sodium Level 142 mmol/L (136-145)
[2019-03-16] MEDS: NA CHLORIDE 0.9% 1,000 ML IV SCH (07:20)
[2019-03-16] MEDS: INSULIN -REGULAR HUMAN 50 UNIT/0.5 ML ML SQ SCH ×2 (07:30→11:30)
[2019-03-16] MEDS: CEFTRIAXONE/SWI 1gm 1 GM/10 ML SYR IVP SCH (08:11)
[2019-03-16] MEDS: FLUTICASONE 50MCG NASAL SPRAY NAS SCH (08:11)
[2019-03-16] MEDS: ENOXAPARIN 40 MG/0.4 ML SQ SCH (08:11)
[2019-03-16] MEDS: AZITHROMYCIN IV 500 MG in NA CHLORIDE 0.9% 250 ML IVPB SCH (08:12)
[2019-03-16] MEDS: ALBUTEROL 2.5 MG/3 ML NEB SOL NEB PRN (08:29)
[2019-03-16 08:58] VITALS: O2SAT 93
[2019-03-16] MEDS ORDERED: POTASSIUM CL SA 10 MEQ TAB PO ONE (09:00)
--- NOTE | 2019-03-16 11:21 | P.DS ---
Admission Date: 03/14/19 Discharge Date: 03/16/19 Disposition: [place] HOME/HOME HEALTH CARE Discharge Condition: FAIR Reason for Admission: Fever - Problems (1) Acute bronchitis Current Visit: Yes Status: Acute (2) Acute viral syndrome Current Visit: Yes Status: Acute (3) Sepsis Current Visit: Yes Status: Acute (4) Diabetes Current Visit: Yes Status: Chronic (5) Hypertension Current Visit: Yes Status: Chronic (6) Obesity Current Visit: Yes Status: Chronic Brief History of Present Illness: Patient with history of hypertension, diabetes mellitus, hyperlipidemia admitted for fever nasal congestion and body aches . Hospital Course: This patient on admission was diagnosed with presumed viral infection. He had strep screen done which was negative as well as influenza swab was also negative. He had a blood culture with no growth after 48 hr. He had persistent fever for the first 24 hrs . but which gradually resolved . He was initially still started on empirical antibiotics fluid which was later discontinued. Patient's fever has resolved now. He has evidence of mild viral bronchitis which improved with nebulizer . Patient will be discharged to home with MDI proventil as well as guaifenesin as needed. Vital Signs/Physical Exam: Temp Pulse Resp BP Pulse Ox 98.1 F 73 18 134/73 93 03/16/19 08:00 03/16/19 08:00 03/16/19 08:00 03/16/19 08:00 03/16/19 08:00 General: Alert, Oriented x3, Obese HEENT: Atraumatic, Normocephalic, PERRLA Neck: Supple, 2+ carotid pulse no bruit, JVD not distended Respiratory: Clear to auscultation bilaterally, Normal air movement Cardiovascular: Regular rate/rhythm, Normal S1 S2 Gastrointestinal: Normal bowel sounds, Soft and benign Musculoskeletal: No clubbing, No swelling Integumentary: No rashes, No breakdown Neurological: Normal strength at 5/5 x4 extr, Cranial nerves 3-12 intact External genitalia: No edema, No lesions Laboratory Data at Discharge: WBC 6.9 K/uL (4.3-10.9) D 03/16/19 05:50 Hgb 12.8 g/dL (13.6-17.9) L 03/16/19 05:50 Hct 37.4 % (39.6-49.0) L 03/16/19 05:50 Plt Count 206 K/uL (152-406) D 03/16/19 05:50 PT 13.3 SECONDS (9.5-12.5) H 03/13/19 21:28 INR 1.13 03/13/19 21:28 APTT 28.7 SECONDS (24.3-36.9) 03/13/19 21:28 Sodium 142 mmol/L (136-145) 03/16/19 05:50 Potassium 3.4 mmol/L (3.5-5.1) L 03/16/19 05:50 BUN 6 mg/dL (7-18) L 03/16/19 05:50 Creatinine 0.85 mg/dL (0.55-1.3) 03/16/19 05:50 Glucose 102 mg/dL (74-106) 03/16/19 05:50 Phosphorus 3.5 mg/dL (2.5-4.9) 03/15/19 05:11 Magnesium 2.0 mg/dL (1.8-2.4) 03/15/19 05:11 Total Bilirubin 0.2 mg/dL (0.2-1.0) 03/15/19 05:11 AST 50 U/L (15-37) H 03/15/19 05:11 ALT 56 U/L (12-78) 03/15/19 05:11 Alkaline Phosphatase 67 U/L (45-117) 03/15/19 05:11 Lipase 52 U/L (73-393) L 03/13/19 21:28 Home Medications: Atorvastatin Calcium [Lipitor*] 20 mg PO BEDTIME 03/14/19 Carvedilol [Coreg] 25 mg PO BID 03/14/19 Metformin HCl [Metformin HCl ER] 750 mg PO BID 03/14/19 Valsartan [Diovan*] 160 mg PO DAILY 03/14/19 hydroCHLOROthiazide [Hydrochlorothiazide] 25 mg PO DAILY 03/14/19 Albuterol [Proventil] 17 gm IH Q6HR PRN #1 aerosol 03/16/19 guaiFENesin [Guaifenesin] 400 mg PO Q6HR PRN #20 tablet 03/16/19 New Medications: Albuterol [Proventil] 17 gm IH Q6HR PRN #1 aerosol PRN Reason: Wheezing guaiFENesin [Guaifenesin] 400 mg PO Q6HR PRN #20 tablet PRN Reason: Cough Patient Discharge Instructions: follow with your PCP Diet: Regular Activity: Ad steph
[2019-03-16 12:08] VITALS: BP 144/87; TEMP 99
== END 2019-03-16 12:27 | disposition home health service (06) | DRG 872 ==
LOC: ER 20:59 → ERHOLD 03-14 00:21 → 2ND 03-14 00:58
PROVIDERS: ADMIT Family Medicine; ATTEND Internal Medicine
DX: A41.9 Sepsis, unspecified organism (principal); N17.9 Acute kidney failure, unspecified; J20.9 Acute bronchitis, unspecified; B34.9 Viral infection, unspecified; E66.01 Morbid (severe) obesity due to excess calories; E11.9 Type 2 diabetes mellitus without complications; I10 Essential (primary) hypertension; E78.5 Hyperlipidemia, unspecified; F17.210 Nicotine dependence, cigarettes, uncomplicated
CPT/HCPCS: 36415; 71045; 71275; 80048; 80053; 80076; 81003; 81015; 82550; 82553; 82947; 83605; 83690; 83735; 84100; 84145; 84484; 85025; 85610; 85730; 87040; 87070; 87081; 87804; 93005; 94640; 94760; 96365; 96367; 99285; J0456; J0696; J1650; J7030; Q9967

== ENCOUNTER 2020-05-08 06:24 | Emergency (ER) | payer OTHER, BC ==
--- NOTE | 2020-05-08 07:18 | ER ---
Nurse's Notes [facility] Name: Danish Velez IV Age: 35 yrs Sex: Male : 1985 Arrival Date: 05/08/2020 Time: 06:24 Bed Waiting Private MD: Diagnosis: ED Course: 05/08 06:24 Patient arrived in ED. cl3 07:17 Patient's name was called from ER lobby. No response. Unable to locate patient. Will tl1 disposition as left without being seen by a provider. Administered Medications: No medications were administered Outcome: 07:17 Patient left the ED. tl1 Signatures: Clementina Hays RN RN tl1 Samira Galvin cl3
== END 2020-05-08 07:17 | disposition left against medical advice (07) ==
LOC: ER 06:24
DX: Z02.9 Encounter for administrative examinations, unspecified (principal)